=== PATIENT | female | born 1970 | race Caucasian/White ===

== ENCOUNTER 2018-09-30 21:09 | Emergency (ER) | payer OTHER ==
[2018-09-30 21:15] VITALS: RESP 16
[2018-09-30] MEDS ORDERED: SODIUM CHLORIDE 0.9% 1,000 ML IV ONE (21:57)
[2018-09-30] MEDS ORDERED: diphenhydrAMINE 50 MG/ML 1 ML VIAL IVP STA (21:57)
[2018-09-30] MEDS ORDERED: METOCLOPRAMIDE 5 MG/ML 2 ML VIAL IVP STA (21:57)
[2018-09-30] MEDS ORDERED: KETOROLAC 30 MG/ML 1 ML VIAL IVP STA (21:57)
[2018-09-30] MEDS ORDERED: DEXAMETHASONE SOD PHOSPHATE 10 MG/ML 1 ML VIAL IV STA (22:46)
[2018-09-30] MEDS ORDERED: ONDANSETRON 4 MG/2 ML VIAL IVP STA (22:46)
--- NOTE | 2018-09-30 23:15 | ED ---
Headache HPI - General Chief Complaint: Headache Stated Complaint: Headache Time Seen by Provider: 09/30/18 21:28 Mode of arrival: ambulatory Limitations: no limitations - History of Present Illness Initial Comments: 47-year-old female patient presents to the emergency department today for evaluation of migraine headache. Patient states the headache started approximately 4 hours ago and has gradually worsened. Patient states the pain is located at the base of her skull and radiates around to the front. Patient states she has been nauseated with this plan has vomited. She states she is sensitive to light and sound. Denies any blurred or double vision. She denies any current numbness or tingling to the extremities. Denies any dizziness or weakness. Patient states she does have a history of migraine headache, states that they pattern is the same however the pain seems worse. She denies any neck stiffness, fever, or chills with this. Denies any abdominal pain, chest pain, shortness of breath. Patient denies any recent rash, diarrhea, constipation, back pain, numbness, tingling, hematuria, dysuria, urinary urgency, urinary frequency, or any other complaints. - Related Data Allergies Allergy/AdvReac Type Severity Reaction Status Date / Time clarithromycin [From Biaxin] Allergy Rash/Hives Verified 09/30/18 21:33 levofloxacin [From Levaquin] Allergy Unknown Verified 09/30/18 21:33 Review of Systems ROS Statement: Those systems with pertinent positive or pertinent negative responses have been documented in the HPI. ROS Other: All systems not noted in ROS Statement are negative. Past Medical History Additional Past Medical History / Comment(s): Migraines History of Any Multi-Drug Resistant Organisms: None Reported Past Surgical History: Cholecystectomy, Hysterectomy Past Psychological History: No Psychological Hx Reported Smoking Status: Never smoker Past Alcohol Use History: None Reported Past Drug Use History: None Reported General Exam Limitations: no limitations General appearance: alert, other (Physical well-developed, well-nourished adult female patient in mild distress related to pain. Vital signs upon presentation are temperature 97.6F, pulse 85, respirations 16, blood pressure 123/67, pulse ox 100% on room air.) Eye exam: Present: normal appearance, PERRL, EOMI. Absent: scleral icterus, conjunctival injection, nystagmus, periorbital swelling ENT exam: Present: normal exam, normal oropharynx, mucous membranes moist Respiratory exam: Present: normal lung sounds bilaterally. Absent: respiratory distress, wheezes, rales, rhonchi, stridor Cardiovascular Exam: Present: regular rate, normal rhythm, normal heart sounds. Absent: systolic murmur, diastolic murmur, rubs, gallop, clicks GI/Abdominal exam: Present: soft, normal bowel sounds. Absent: distended, tenderness, guarding, rebound, rigid Neurological exam: Present: alert, oriented X3, CN II-XII intact, other (Strength in all 4 extremities is 5/5.) Psychiatric exam: Present: normal affect, normal mood Skin exam: Present: warm, dry, intact, normal color. Absent: rash Course Vital Signs 09/30/18 09/30/18 21:10 23:54 Temperature 97.6 F 97.7 F Pulse Rate 85 65 Respiratory 16 16 Rate Blood Pressure 123/67 106/63 O2 Sat by Pulse 100 97 Oximetry Medical Decision Making - Medical Decision Making 47-year-old female patient presents to the emergency department today for evaluation of migraine headache. Patient tried her sumatriptan at home 2 and it did not help. Physical examination is unremarkable. She is neurologically intact no focal deficits. Patient was given IV fluids, IV medication for migraine. Upon reevaluation patient states that her headache is completely resolved and she feels better. Also comfortable being discharged home at this time. She is instructed to follow-up with her primary care physician for recheck in 1-2 days. Return parameters were discussed in detail. She verbalizes understanding and agrees with this plan. Disposition Clinical Impression: Migraine headache Disposition: HOME SELF-CARE Condition: Good Instructions (If sedation given, give patient instructions): Migraine Headache (ED) Additional Instructions: Increase fluids. Rest. Follow-up with primary care physician for recheck in 1- 2 days. Return to the emergency department immediately for any new, worsening, or concerning symptoms. Is patient prescribed a controlled substance at d/c from ED?: No Referrals: None,Stated [Primary Care Provider] - 1-2 days Time of Disposition: 23:44
[2018-09-30 23:55] VITALS: BP 106/63; PULSE 65; TEMP 97.7
== END 2018-09-30 23:56 | disposition home or self-care (01) ==
LOC: EC 21:09
DX: G43.909 Migraine, unspecified, not intractable, without status migrainosus (principal); Z88.1 Allergy status to other antibiotic agents; Z53.20 Procedure and treatment not carried out because of patient's decision for unspecified reasons
CPT/HCPCS: 99283; 96374; 96375 ×3; 96361; J1200; J2765; J2405; J1885